=== PATIENT | female | born 1945 | race Caucasian/White ===

== ENCOUNTER 2019-10-17 12:46 | Outpatient (CLI) | payer MEDICARE, OTHER, SELFPAY ==
[2019-10-17 13:02] VITALS: BP 121/79; PULSE 62; RESP 16; TEMP 36.4
[2019-10-17] MEDS: denosumab 60 mg SDV (13:08)
[2019-10-17 13:17] VITALS: BP 132/76; PULSE 67; RESP 16; TEMP 36.6; O2SAT 98
== END 2019-10-17 12:47 | disposition home or self-care (01) ==
LOC: RHEOACUTE 12:47
PROVIDERS: Family Provider Family Medicine; PCP Family Medicine; Visit Provider Internal Medicine Rheumatology
DX: M81.0 Age-related osteoporosis without current pathological fracture (principal)
CPT/HCPCS: 96372; J0897

== ENCOUNTER 2020-05-09 14:22 | Outpatient (RCR) | payer MEDICARE, OTHER, SELFPAY | END 2020-05-18 23:59 | disposition home or self-care (01) | LOC: SPT 14:22 | PROVIDERS: PCP Family Medicine; Referring Provider Family Medicine; Visit Provider Family Medicine | DX: M40.204 Unspecified kyphosis, thoracic region (principal) | CPT/HCPCS: 97110; 97161 ==

== ENCOUNTER 2020-05-19 06:00 | Outpatient (RCR) | payer MEDICARE, OTHER, SELFPAY | END 2020-06-17 23:59 | disposition home or self-care (01) | LOC: SPT 06:00 | PROVIDERS: PCP Family Medicine; Referring Provider Family Medicine; Visit Provider Family Medicine | DX: M40.204 Unspecified kyphosis, thoracic region (principal) | CPT/HCPCS: 97110 ==

== ENCOUNTER 2020-06-19 15:14 | Outpatient (CLI) | payer MEDICARE, OTHER, SELFPAY ==
--- NOTE | 2020-06-19 15:22 | MM_ITS ---
WS: [id number] BILATERAL DIGITAL SCREENING MAMMOGRAPHY WITH CAD CLINICAL INFORMATION: SCREENING HISTORY: Screening mammogram. No current complaints. COMPARISON: TECHNIQUE: Bilateral CC and MLO views. FINDINGS: Right breast implant. Right breast implant is intact. Scattered fibroglandular densities bilaterally. No suspicious focal mass, asymmetry, calcifications, or architectural distortion. No evidence of malignancy. A few stable punctate calcifications. Stable 6 mm ovoid nodule inner left breast. MM/[place] [id number] IMPRESSION: BI-RADS: 2-Benign FOLLOW UP: 1 Year Follow-up Recommend return to annual screening mammography.
== END 2020-06-19 15:15 | disposition home or self-care (01) ==
LOC: RADSHAW 15:20
PROVIDERS: PCP Family Medicine; Visit Provider Nurse Practitioner
DX: Z12.31 Encounter for screening mammogram for malignant neoplasm of breast (principal)
CPT/HCPCS: 77067

== ENCOUNTER 2020-11-05 10:36 | Outpatient (CLI) | payer MEDICARE, OTHER, SELFPAY ==
--- NOTE | 2020-11-05 11:00 | CT_ITS ---
WS: [id number] CT PARANASAL SINUSES HISTORY: SINUSITIS TECHNIQUE: Contiguous 2.5 mm axial images obtained through the sinuses. Images are reconstructed in s agittal and coronal planes. All CT scans at [facility] use at least one of these dose opt imization techniques: automated exposure control; mA and/or kV adjustment per patient size (includes targeted exams where dose is matched to clinical indication); or iterative reconstruction. DLP: 338.71 mGycm COMPARISON: None available. Frontal sinuses: Normal. Sphenoid sinus: Normal. Ethmoid sinuses: Mild bilateral mucoperiosteal thickening in the anterior ethmoid air cells, RIGHT gr eater than LEFT. Maxillary sinus: Mild bilateral mucoperiosteal thickening throughout both sinuses but RIGHT greater t schuster LEFT. No air-fluid levels. Incomplete soft tissue and bony septa along the superior wall of the m axillary sinuses. Ostiomeatal unit: Obstruction of the ostiomeatal units bilaterally. In part this is due to the bony a nd soft tissue septums involving the superior maxillary sinuses. Most significant obstruction on the RIGHT. RIGHT curvature of the nasal septum with a soft tissue nodule extending to the RIGHT. CT/CT sinus wo con* [id number] IMPRESSION: 1. Mild mucoperiosteal thickening in the anterior ethmoid air cells and maxill carlie sinuses. 2. Soft tissue obstruction of the ostiomeatal units is in part due to soft tis barbara and bony septa along the superior maxillary sinuses. No air-fluid levels.
== END 2020-11-05 10:37 | disposition home or self-care (01) ==
PROVIDERS: PCP Family Medicine; Visit Provider Otolaryngology
DX: J32.9 Chronic sinusitis, unspecified (principal)
CPT/HCPCS: 70486

== ENCOUNTER → 2021-04-10 14:28 | Outpatient (BNVA) | payer MEDICARE, OTHER, SELFPAY | PROVIDERS: PCP Family Medicine; Visit Provider Obstetrics & Gynecology | DX: Z01.419 Encounter for gynecological examination (general) (routine) without abnormal findings (principal); R10.9 Unspecified abdominal pain | CPT/HCPCS: 81000; 87086 ==

== ENCOUNTER → 2021-05-07 08:22 | Outpatient (BNVA) | payer MEDICARE, OTHER, SELFPAY | PROVIDERS: PCP Family Medicine; Visit Provider Obstetrics & Gynecology | DX: M81.0 Age-related osteoporosis without current pathological fracture (principal); Z79.899 Other long term (current) drug therapy | CPT/HCPCS: 82040; 82310; 82565; 82652 ==

== ENCOUNTER 2021-05-19 13:41 | Outpatient (CLI) | payer MEDICARE, OTHER, SELFPAY ==
[2021-05-19 14:18] VITALS: BP 147/86; PULSE 80; RESP 18; TEMP 37.2; O2SAT 97
[2021-05-19] MEDS: denosumab 60 mg SDV SUBCUT (14:27)
[2021-05-19 14:41] VITALS: BP 146/90; PULSE 63; RESP 18; TEMP 37.1; O2SAT 97
== END 2021-05-19 13:42 | disposition home or self-care (01) ==
PROVIDERS: PCP Family Medicine; Referring Provider Family Medicine; Visit Provider Family Medicine
DX: M81.0 Age-related osteoporosis without current pathological fracture (principal)
CPT/HCPCS: 96372; J0897

== ENCOUNTER → 2021-06-12 11:10 | Outpatient (BNVA) | payer MEDICARE, OTHER, SELFPAY | PROVIDERS: PCP Family Medicine; Visit Provider Registered Nurse Neonatal Intensive Care | DX: Z20.822 Contact with and (suspected) exposure to COVID-19 (principal); Z11.52 Encounter for screening for COVID-19; J06.9 Acute upper respiratory infection, unspecified; R05.9 Cough, unspecified | CPT/HCPCS: 87635 ==

== ENCOUNTER 2021-11-17 13:41 | Outpatient (CLI) | payer MEDICARE, OTHER, SELFPAY ==
[2021-11-17 14:11] VITALS: BP 133/87; PULSE 71; RESP 18; TEMP 36.2; O2SAT 95
[2021-11-17] MEDS: denosumab 60 mg SDV SUBCUT (14:26)
[2021-11-17 14:35] VITALS: BP 144/86; PULSE 70; RESP 18; TEMP 36.6; O2SAT 96
== END 2021-11-17 13:42 | disposition home or self-care (01) ==
LOC: ONCMED 13:51
PROVIDERS: PCP Family Medicine; Referring Provider Family Medicine; Visit Provider Family Medicine
DX: M81.0 Age-related osteoporosis without current pathological fracture (principal)
CPT/HCPCS: 96372; J0897

== ENCOUNTER 2022-01-08 11:11 | Outpatient (CLI) | payer MEDICARE, OTHER, SELFPAY ==
--- NOTE | 2022-01-08 11:17 | MM_ITS ---
WS: [email or web address] VIEWS: MLO and CC views both breasts. 3D digital tomosynthesis is also included in this exam. Right breast implant displacement MLO and CC views also included in the series. Comparison made with prior exam of 12/31/2015, 01/01/2017, 03/04/2018, 02/07/2019, 06/19/2020.. Findings: There was no sign of mass, architectural distortion or suspicious calcification in either breast. Sta ble appearing nodular density in the medial left breast. Breast implant in the right breast which is partially deflated.Scattered fibroglandular densities MM/[place] [id number] Impression: BI-RADS: 2-Benign FOLLOW-UP: 1 Year Follow-up This mammogram was also analyzed by the Computer Aided Detection System R2 Imag e [employer].
== END 2022-01-08 11:12 | disposition home or self-care (01) ==
PROVIDERS: PCP Family Medicine; Visit Provider Family Medicine
DX: Z12.31 Encounter for screening mammogram for malignant neoplasm of breast (principal)
CPT/HCPCS: 77063; 77067

== ENCOUNTER → 2022-02-25 15:06 | Outpatient (BNVA) | payer MEDICARE, OTHER, SELFPAY | PROVIDERS: PCP Family Medicine; Visit Provider Nurse Practitioner Family | DX: R33.9 Retention of urine, unspecified (principal); N39.0 Urinary tract infection, site not specified; R35.1 Nocturia | CPT/HCPCS: 81003; 99213 ==

== ENCOUNTER → 2022-03-11 10:56 | Outpatient (BNVA) | payer MEDICARE, OTHER, SELFPAY | PROVIDERS: PCP Family Medicine; Visit Provider Nurse Practitioner Family | DX: R33.9 Retention of urine, unspecified (principal); R35.1 Nocturia; N39.0 Urinary tract infection, site not specified | CPT/HCPCS: 81003; 99213 ==

== ENCOUNTER → 2022-05-15 09:38 | Outpatient (BNVA) | payer MEDICARE, OTHER, SELFPAY | PROVIDERS: PCP Family Medicine; Visit Provider Family Medicine | DX: H81.10 Benign paroxysmal vertigo, unspecified ear (principal) | CPT/HCPCS: 80053 ==

== ENCOUNTER → 2022-05-18 13:29 | Outpatient (BNVA) | payer MEDICARE, OTHER, SELFPAY | PROVIDERS: PCP Family Medicine; Visit Provider Otolaryngology | DX: H81.10 Benign paroxysmal vertigo, unspecified ear (principal) | CPT/HCPCS: 99213 ==

== ENCOUNTER 2022-05-25 12:55 | Outpatient (CLI) | payer MEDICARE, OTHER, SELFPAY ==
[2022-05-25 13:22] VITALS: BP 149/80; PULSE 70; RESP 18; TEMP 36.7; O2SAT 97
[2022-05-25] MEDS: denosumab 60 mg SDV SUBCUT (13:31)
[2022-05-25 13:39] VITALS: BP 142/88; PULSE 70; RESP 18; TEMP 36.6; O2SAT 97
== END 2022-05-25 12:56 | disposition home or self-care (01) ==
LOC: ONCMED 12:56
PROVIDERS: PCP Family Medicine; Visit Provider Family Medicine
DX: M81.0 Age-related osteoporosis without current pathological fracture (principal)
CPT/HCPCS: 96372; J0897

== ENCOUNTER → 2023-04-15 15:48 | Outpatient (BNVA) | payer MEDICARE, OTHER, SELFPAY | PROVIDERS: PCP Family Medicine; Visit Provider Family Medicine | DX: Z78.0 Asymptomatic menopausal state; Z13.6 Encounter for screening for cardiovascular disorders; Z11.59 Encounter for screening for other viral diseases | CPT/HCPCS: 81000 ==

== ENCOUNTER → 2023-04-16 09:22 | Outpatient (BNVA) | payer MEDICARE, OTHER, SELFPAY | PROVIDERS: PCP Family Medicine; Visit Provider Family Medicine | DX: Z13.6 Encounter for screening for cardiovascular disorders (principal); Z11.59 Encounter for screening for other viral diseases; Z79.899 Other long term (current) drug therapy | CPT/HCPCS: 80053; 80061; 85025; 86803 ==

== ENCOUNTER 2023-05-17 13:04 | Outpatient (CLI) | payer MEDICARE, OTHER, SELFPAY ==
--- NOTE | 2023-05-17 13:13 | MM_ITS ---
WS: [email or web address] BILATERAL 3D TOMOSYNTHESIS DIGITAL SCREENING MAMMOGRAPHY WITH CAD CLINICAL INFORMATION: screening HISTORY: Screening mammogram. RIGHT breast pain and tenderness) COMPARISON: 2020 TECHNIQUE: Bilateral CC and MLO views. FINDINGS: Stable RIGHT breast implant. LEFT breast is unchanged in appearance. Stable ovoid nodule in ner LEFT breast. Scattered fibroglandular densities bilaterally. No suspicious focal mass, asymmetry, calcifications, or architectural distortion. No evidence of malignancy. A few incidental punctate calcifications. Vas cular calcifications. IMPRESSION: MM/[place] [id number] BI-RADS: 2-Benign FOLLOW UP: 1 Year Follow-up Recommend return to annual screening mammography.
--- NOTE | 2023-05-17 14:00 | XR_ITS ---
WS: [email or web address] SCREENING DEXA SCAN [employer] CLINICAL INFORMATION: post-menopausal COMPARISON: 2018 FINDINGS: The L1-L4 bone mineral density measures 1.027 g/cm2. This corresponds to a T score score of -1.3 and Z score of 0.7. Left femoral neck bone mineral density measures 0.724 g/cm2. This corresponds to a T score of -2.2 an d Z score of -0.3. Right femoral neck bone mineral density measures 0.720 g/cm2. This corresponds to a T score -2.3of an d Z score of -0.4. Mean femoral neck bone mineral density measures 0.722 g/cm2. This corresponds to a T score of -2.3 an d Z score of -0.4. IMPRESSION: Osteopenia lumbar spine. Osteopenia femoral necks. Patient's FRAX calculated 10 year probability for major osteoporotic fracture is 26.2% and osteoporot ic hip fracture is 16.7%. Bone mineral density in the lumbar spine increased 4.7% Bone mineral density femoral necks increased 2.4%
== END 2023-05-17 13:05 | disposition home or self-care (01) ==
LOC: RAD 13:05
PROVIDERS: PCP Family Medicine; Visit Provider Family Medicine
DX: Z12.31 Encounter for screening mammogram for malignant neoplasm of breast (principal); Z13.820 Encounter for screening for osteoporosis; Z78.0 Asymptomatic menopausal state
CPT/HCPCS: 77063; 77067; 77080

== ENCOUNTER 2023-07-08 14:03 | Outpatient (CLI) | payer MEDICARE, OTHER, SELFPAY ==
--- NOTE | 2023-07-08 14:06 | XRR_ITS ---
PROCEDURE INFORMATION: Exam: XR Cervical Spine Exam date and time: 07/08/2023 2:21 PM Age: 78 years old Clinical indication: Radicular pain (radiculopathy); Cervical region; Additional info: Cervical radiculopathy TECHNIQUE: Imaging protocol: Radiologic exam of the cervical spine. Views: 2 or 3 views. COMPARISON: CR XR cervical spine 4-5V [id number] 07/15/2021 11:48 AM FINDINGS: Bones/joints: Stable minimal reverse listhesis of C 2 on C3. Very minimal anterolisthesis of C6 on C7. Vertebral body and intervertebral disc heights are intact. Diffuse facet arthropathy again seen bilaterally. No fracture or dislocation. Soft tissues: No soft tissue pathology. XR/XR cervical spine 3V* [id number] IMPRESSION: No acute pathology or significant interval change. Minimal listhesis and features facet arthropathy again noted.
== END 2023-07-08 14:04 | disposition home or self-care (01) ==
LOC: RAD 14:03
PROVIDERS: PCP Family Medicine; Visit Provider Family Medicine
DX: M54.12 Radiculopathy, cervical region (principal)
CPT/HCPCS: 72040

== ENCOUNTER → 2023-09-27 14:21 | Outpatient (BNVA) | payer MEDICARE, OTHER, SELFPAY | PROVIDERS: PCP Family Medicine; Visit Provider Family Medicine | DX: R51.9 Headache, unspecified; E55.9 Vitamin D deficiency, unspecified; R10.11 Right upper quadrant pain | CPT/HCPCS: 80053; 82306; 85025; 85651; 86140 ==

== ENCOUNTER 2023-09-29 06:22 | Outpatient (CLI) | payer MEDICARE, OTHER, SELFPAY ==
--- NOTE | 2023-09-29 06:30 | US_ITS ---
WS: [email or web address] RIGHT UPPER QUADRANT ULTRASOUND HISTORY: ruq pain COMPARISON: 01/12/2019 Liver: 13.1 cm in length. Normal size liver. There is a simple cyst in the RIGHT lobe measuring 2.0 x 1.7 x 1.8 cm. This cyst has been previously described. No solid mass. Portal Vein: Normal hepatopetal flow with monophasic waveform. Gallbladder: Normally distended gallbladder with no stones or wall thickening. CBD: 0.4 cm Pancreas: Normal size and echogenicity. Right kidney: 8.9 cm in length. Normal size and echogenicity. No hydronephrosis or mass. Aorta and IVC: Unremarkable abdominal aorta and IVC. No ascites. IMPRESSION: 1. Normal gallbladder. 2. Stable hepatic cyst. No solid mass or bile duct dilatation.
== END 2023-09-29 06:23 | disposition home or self-care (01) ==
LOC: RAD 06:22
PROVIDERS: PCP Family Medicine; Visit Provider Family Medicine
DX: R10.11 Right upper quadrant pain (principal)
CPT/HCPCS: 76705; 80053; 82306; 85025; 85651; 86140

== ENCOUNTER 2023-10-26 09:54 | Outpatient (CLI) | payer MEDICARE, OTHER, SELFPAY ==
--- NOTE | 2023-10-26 10:15 | MR_ITS ---
WS: [email or web address] MRI HEAD WITH CONTRAST TECHNIQUE: Sagittal T1, T2 axial, T2 axial FLAIR, axial susceptibility weighted imaging, axial diffus ion weighted images, and coronal T2 images were obtained. Pre and post-T1 axial and post T1 coronal i mages. ADC and FSPGR images. CLINICAL INFORMATION: right sided temporal pain / headache COMPARISON: None. FINDINGS: No evidence of restricted diffusion to suggest acute ischemia. Mild small vessel changes. Moderate pa renchymal volume loss. Incidental cavum septa pellucida and vergae. Normal posterior fossa. Normal va scular flow voids at the skull base. No extra-axial fluid collections. No evidence of mass or mass ef fect. Mild mucosal thickening in the ethmoid air cells. Mild mucosal thickening paranasal sinuses. No rmal posterior nasopharynx. Mastoid air cells are well aerated. Partially visualized lobulated T2 hyperintense RIGHT parotid lesion measuring 2.1 x 1.3 cm may repres ent parotid adenoma but indeterminate. This can be followed up with contrast-enhanced neck CT and ENT consultation. No hemosiderin on the susceptibility weighted images. Normal optic chiasm and pituitary infundibulum. Moderate symmetric atrophy temporal lobes and hippocampal formations. Enhancing extra-axial lesion RIGHT parietal lobe posteriorly adjacent to the sagittal sinus likely ca lcified meningioma measuring 10 x 7 mm. No significant underlying signal abnormality. Minimal mass ef fect on the underlying parenchyma. No other abnormal foci of enhancement. IMPRESSION: 1. No evidence of restricted diffusion to suggest acute ischemia. 2. Mild small vessel changes with moderate parenchymal volume loss. 3. Enhancing extra-axial lesion overlying the RIGHT parietal lobe adjacent to the sagittal sinus lik marc meningioma. This measures 10 x 7 mm. No underlying signal abnormality. Recommend 12-month follow- up MRI of the head without and with gadolinium enhancement. 4. Lobulated peripheral enhancing T2 hyperintense lesion involving the RIGHT parotid gland measuring 2.1 x 1.3 cm. This may present a parotid adenoma but technically indeterminate. This could be furthe r evaluated with contrast-enhanced CT neck and ENT consultation.
--- NOTE | 2023-10-26 11:00 | MR_ITS ---
WS: [email or web address] MRI CERVICAL SPINE NONCONTRAST TECHNIQUE: Sagittal T1, T2 and STIR imaging. Axial T2, gradient, and fiesta imaging. CLINICAL INFORMATION: cervical radiculopathy COMPARISON: None. FINDINGS: Some images degraded by motion artifact Exaggeration of the normal cervical lordosis. Cord signal is normal. No high-grade central canal narr owing. C2-C3: Normal. C3-C4: Disc osteophyte complex. Moderate facet arthropathy. Moderate LEFT foraminal narrowing. C4-C5: Mild disc osteophyte complex. Moderate facet arthropathy. Moderate LEFT greater than RIGHT for aminal narrowing. C5-C6: Moderate facet arthropathy worse in the LEFT. Mild osteophytic ridging. Mild bilateral foramin al narrowing. C6-C7: No significant disc bulging. Mild osteophytic ridging. Spinal canal and foramen are patent. C7-T1: Spinal canal and foramen are patent. Visualized brain stem structures: Normal. Prevertebral soft tissues: Normal. Partially evaluated LEFT thyroid nodule measuring 3.9 x 3.0 cm. This could follow-up with ultrasound. IMPRESSION: 1. Exaggeration of the normal cervical lordosis. Cord signal is normal. 2. Multilevel moderate bony foraminal narrowing worse at LEFT C3-C4, bilateral C4-5 worse on the LEF T, 3. Moderate facet arthropathy C3-C4 C4-C5 and LEFT C5-C6. 4. Large LEFT thyroid nodule partially evaluated. This could be further evaluated with ultrasound.
[2023-10-26] MEDS: gadobenate dimeglumine 20 mL vial IV (11:24)
== END 2023-10-26 09:55 | disposition home or self-care (01) ==
PROVIDERS: PCP Family Medicine; Visit Provider Family Medicine
DX: M54.12 Radiculopathy, cervical region (principal); R51.9 Headache, unspecified; M48.02 Spinal stenosis, cervical region; M47.812 Spondylosis without myelopathy or radiculopathy, cervical region; G31.89 Other specified degenerative diseases of nervous system
CPT/HCPCS: 70553; 72141; A9577

== ENCOUNTER 2023-10-27 08:29 | Outpatient (CLI) | payer MEDICARE, OTHER, SELFPAY ==
--- NOTE | 2023-10-27 10:00 | NM_ITS ---
WS: [email or web address] NUCLEAR MEDICINE HIDA SCAN WITH GALLBLADDER EJECTION FRACTION HISTORY: RUQ Pain COMPARISON: 09/29/2023 TECHNIQUE: The patient was intravenously injected with 7.7 mCi of TC99m Mebrofenin. Immediate imaging over the right upper quadrant was followed by 5 minute image and additional images for a total of 60 minutes. Normal uptake of radiotracer throughout the liver. Activity identified in the gallbladder at 15 minutes and well distended by 60 minutes. Activity in the proximal small bowel was seen by 30 minutes. Good washout of the radiotracer from the liver by 60 minutes. The patient then drank 8 ounces of Ensure Plus. Ejection fraction at 60 minutes was 80%. Normal GB ej ection fraction is 35-75%. Post fatty meal symptoms: None. IMPRESSION: 1. Normal HIDA scan. 2. Normal gallbladder ejection fraction.
== END 2023-10-27 08:30 | disposition home or self-care (01) ==
LOC: RAD 08:31
PROVIDERS: PCP Family Medicine; Visit Provider Family Medicine
DX: R10.11 Right upper quadrant pain (principal)
CPT/HCPCS: 78227; A9537

== ENCOUNTER → 2023-10-29 11:03 | Outpatient (BNVA) | payer MEDICARE, OTHER, SELFPAY | PROVIDERS: PCP Family Medicine; Visit Provider Family Medicine | DX: E78.5 Hyperlipidemia, unspecified (principal); E83.52 Hypercalcemia | CPT/HCPCS: 80053; 80061 ==

== ENCOUNTER 2023-11-01 07:49 | Outpatient (CLI) | payer MEDICARE, OTHER, SELFPAY ==
--- NOTE | 2023-11-01 08:15 | US_ITS ---
WS: [email or web address] THYROID ULTRASOUND HISTORY: Thyroid nodule COMPARISON: None available. Right lobe: 1.3 cm x 2.7 cm x 4.7 cm (w x ap x l). Volume: 8.0 cm3. Mildly enlarged but very heterogeneous and nodular gland. There are a few scattered cystic areas. The re is no discrete mass identified. No increased vascularity. Left lobe: 2.8 cm x 2.8 cm x 4.6 cm (w x ap x l). Volume: 17.1 cm3. Markedly enlarged heterogeneous nodular gland. There is a large isoechoic nodule essentially filling nearly the entire gland. Nodule measures 2.5 x 2.3 x 3.7 cm. There are a few cystic areas scattered t hroughout. No increased vascularity. No echogenic focus. Isthmus: 0.2 cm. IMPRESSION: 1. TI-RADS 3; LEFT thyroid nodule. Due to the size of this nodule recommend fine-needle aspiration at this time by ultrasound. 2. Mildly heterogeneous nodular RIGHT thyroid with no mass.
== END 2023-11-01 07:50 | disposition home or self-care (01) ==
LOC: RAD 07:49
PROVIDERS: PCP Family Medicine; Visit Provider Family Medicine
DX: E04.1 Nontoxic single thyroid nodule (principal)
CPT/HCPCS: 76536

== ENCOUNTER 2023-11-16 16:33 | Outpatient (CLI) | payer MEDICARE, OTHER, SELFPAY ==
--- NOTE | 2023-11-16 16:45 | CT_ITS ---
WS: [email or web address] CT NECK TECHNIQUE: Contrast-enhanced CT of the neck with coronal and sagittal reformatted images. CLINICAL INFORMATION: Parotid Lesion COMPARISON: None. DLP: 130.[address] scans at [facility] use at least one of these dose optimization techniques: automated e xposure control; mA and/or kV adjustment per patient size (includes targeted exams where dose is matc hed to clinical indication); or iterative reconstruction. FINDINGS: Paranasal sinuses are well aerated. Mild mucosal thickening in the ethmoid air cells and maxillary si nuses. Normal posterior nasopharynx. Mastoid air cells are well aerated. Dental artifact degrades aubrie e images at the tongue base. Normal parapharyngeal fat. Again seen is the peripherally enhancing lesi on involving the RIGHT parotid tail measuring 1.6 x 1.0 cm partially visualized on the prior head MRI nonspecific but suspicious for parotid adenoma. Recommend ENT consultation. This appears well-circum scribed on today's study and on the prior MRI. LEFT parotid gland is normal. Normal submandibular glands. LEFT thyroid nodule as seen on the recent ultrasound measuring 2.5 x 3.5 cm. Slightly nodular heterogeneous enhancement in the RIGHT thyroid. N o cervical lymphadenopathy. Fibrosis in the lung apices. Partially visualized soft tissue lesion in the RIGHT tracheoesophageal groove measuring 2.1 x 1.7 cm partially visualized. Neoplasm is not excluded. Recommend further evaluation with chest CT. No prior chest CTs for comparison. CT/CT neck w con* [id number] IMPRESSION: 1. Well-circumscribed peripherally enhancing RIGHT parotid nodule nonspecific but suspicious for parotid adenoma. Recommend ENT consultation. 2. Salivary glands are otherwise normal. 3. Dominant LEFT thyroid nodule as seen on the recent ultrasound. 4. No cervical lymphadenopathy. 5. Soft tissue nodule partially visualized in the RIGHT tracheoesophageal groo ve measuring 2.1 x 1.7 cm. Recommend further evaluation with contrast-enhanced chest CT. No prior CT chest comparisons.
[2023-11-16] MEDS: iohexol 350 mg/mL 500 mL Btl (per mL) IV (17:13)
== END 2023-11-16 16:34 | disposition home or self-care (01) ==
PROVIDERS: PCP Family Medicine; Visit Provider Family Medicine
DX: K11.9 Disease of salivary gland, unspecified (principal)
CPT/HCPCS: 70491; Q9967

== ENCOUNTER 2023-11-17 14:13 | Outpatient (CLI) | payer MEDICARE, OTHER, SELFPAY ==
[2023-11-17 15:36] LABS: Parathyroid Hormone 102.6 pg/mL (15-65)
== END 2023-11-17 14:14 | disposition home or self-care (01) ==
LOC: LAB 14:15
PROVIDERS: PCP Family Medicine; Visit Provider Family Medicine
DX: E83.52 Hypercalcemia (principal)
CPT/HCPCS: 36415; 82310; 83970

== ENCOUNTER 2023-11-23 10:13 | Outpatient (CLI) | payer MEDICARE, OTHER, SELFPAY ==
[2023-11-23 11:40] LABS: Total Volume Urine 1500 ml
[2023-11-23 11:56] LABS: Calcium 24 Hour Urine 177 mg/24hr (100-300); Urine Calcium Result 11.8 mg/dL
== END 2023-11-23 10:14 | disposition home or self-care (01) ==
LOC: LAB 10:15
PROVIDERS: PCP Family Medicine; Visit Provider Family Medicine
DX: N25.81 Secondary hyperparathyroidism of renal origin (principal)
CPT/HCPCS: 82340

== ENCOUNTER 2023-11-29 08:55 | Outpatient (CLI) | payer MEDICARE, OTHER, SELFPAY ==
--- NOTE | 2023-11-29 09:15 | CT_ITS ---
WS: [email or web address] CT CHEST TECHNIQUE: Contrast enhanced CT of the chest with coronal and sagittal reformatted images. CLINICAL INFORMATION: Tracheoesophageal Lesion COMPARISON: CT neck 11/16/2023 DLP: 259.[address] scans at [facility] use at least one of these dose optimization techniques: automated e xposure control; mA and/or kV adjustment per patient size (includes targeted exams where dose is matc hed to clinical indication); or iterative reconstruction. FINDINGS: Dominant LEFT thyroid nodule as seen on the recent ultrasound. Mild mass effect on the trachea at the thoracic inlet. No significant narrowing. No suspicious mass in the tracheoesophageal groove. Previously described partially visualized lesion corresponds to the normal azygos vein today. Moderate thoracic kyphosis. No acute compression fractur es. RIGHT breast prosthesis. Chronic emphysematous changes. No acute pulmonary infiltrates. Adrenal glands are normal. Small partially visualized hepatic cysts. Diffuse heterogeneous hepatic en hancement. This is partially visualized and recommend further evaluation with contrast-enhanced CT ab domen pelvis. Recommend correlation with liver function tests. CT/CT chest w con* [id number] IMPRESSION: 1. No suspicious findings in the tracheoesophageal groove today. Normal azygos vein. 2. Stable previously described dominant LEFT thyroid nodule. 3. Lungs are well aerated. Chronic emphysematous changes. 4. Diffuse coarse heterogeneous hepatic parenchymal enhancement. This is parti ally visualized. Recommend further evaluation with contrast-enhanced CT abdomen pelvis and/or liver ultrasound. Recommend correlation with liver function test s. 5. A few partially visualized hepatic cysts.
[2023-11-29] MEDS: iohexol 350 mg/mL 500 mL Btl (per mL) IV (09:43)
== END 2023-11-29 08:56 | disposition home or self-care (01) ==
LOC: RAD 08:55
PROVIDERS: PCP Family Medicine; Visit Provider Family Medicine
DX: R22.2 Localized swelling, mass and lump, trunk (principal); E04.1 Nontoxic single thyroid nodule; K76.89 Other specified diseases of liver
CPT/HCPCS: 71260; Q9967

== ENCOUNTER → 2023-11-30 14:20 | Outpatient (BNVA) | payer MEDICARE, OTHER, SELFPAY | PROVIDERS: PCP Family Medicine; Visit Provider Otolaryngology | DX: E04.1 Nontoxic single thyroid nodule (principal); K11.8 Other diseases of salivary glands | CPT/HCPCS: 99215 ==

== ENCOUNTER 2023-12-08 10:10 | Outpatient (CLI) | payer MEDICARE, OTHER, SELFPAY ==
--- NOTE | 2023-12-08 10:35 | US_ITS ---
WS: [email or web address] ULTRASOUND GUIDED RIGHT PAROTID FNA CLINICAL INFORMATION: FNA OF RIGHT PAROTID MASS TECHNIQUE: Ultrasound-guided FNA FINDINGS: The procedure including risks, benefits, and complications were discussed with the patient who agreed to proceed. Timeout was performed. Using sterile technique patient was prepped and draped in usual sterile fashion. After 1% lidocaine, using ultrasound guidance, a 25-gauge needle was advanc ed into the RIGHT parotid nodule. 3 passes were made with active aspiration. Cystic lesion collapsed after the initial passes. Aspirated fluid sent for cytology. Pathology was present for slide preparation. No immediate complications. Patient remained in the ultrasound 15 minutes postprocedure with intermittent ultrasound to ensure no hematoma. No hematoma 15 minutes postprocedure. US/US guide FNA [id number] IMPRESSION: 1. Uncomplicated ultrasound-guided RIGHT parotid FNA 2. Cystic parotid lesion collapsed after the initial 2 passes. No significant residual lesion. Recommend follow-up with contrast-enhanced neck CT 3. Cytology is pending.
--- NOTE | 2023-12-08 11:45 | US_ITS ---
WS: [email or web address] ULTRASOUND THYROID FNA CLINICAL INFORMATION: left thyroid mass TECHNIQUE: Ultrasound-guided FNA FINDINGS: The procedure including risks, benefits, and complications were discussed with the patient who agreed to proceed. Timeout was performed. Using sterile technique patient was prepped and draped in usual sterile fashion. After 1% lidocaine, using ultrasound guidance, a 25-gauge needle was advanc ed into the LEFT thyroid nodule. 5 passes were made with active aspiration. Pathology was present for slide preparation. No immediate complications. Patient remained in the ultrasound suite 15 minutes postprocedure with intermittent ultrasound to ens ure no hematoma. No hematoma 15 minutes postprocedure. US/US biopsy/FNA thyroid [id number] IMPRESSION: Uncomplicated ultrasound-guided thyroid FNA of the LEFT thyroid nodule. Cytology is pending.
== END 2023-12-08 10:11 | disposition home or self-care (01) ==
LOC: RAD 10:10
PROVIDERS: PCP Family Medicine; Visit Provider Otolaryngology
DX: K11.8 Other diseases of salivary glands (principal); E04.1 Nontoxic single thyroid nodule
CPT/HCPCS: 10005; 88173

== ENCOUNTER → 2023-12-16 10:40 | Outpatient (BNVA) | payer MEDICARE, OTHER, SELFPAY | PROVIDERS: PCP Family Medicine; Visit Provider Otolaryngology | DX: K11.8 Other diseases of salivary glands (principal); E04.1 Nontoxic single thyroid nodule | CPT/HCPCS: 99213 ==

== ENCOUNTER → 2024-03-23 12:32 | Outpatient (BNVA) | payer MEDICARE, OTHER, SELFPAY | PROVIDERS: PCP Family Medicine; Visit Provider Internal Medicine | DX: E55.9 Vitamin D deficiency, unspecified (principal); M81.0 Age-related osteoporosis without current pathological fracture; E04.1 Nontoxic single thyroid nodule; N25.81 Secondary hyperparathyroidism of renal origin; E78.5 Hyperlipidemia, unspecified | CPT/HCPCS: 36415; 80053; 82306; 82310; 83970; 84439; 84443 ==

== ENCOUNTER → 2024-05-18 14:26 | Outpatient (BNVA) | payer MEDICARE, OTHER, SELFPAY | PROVIDERS: PCP Family Medicine; Visit Provider Nurse Practitioner Family | DX: D18.01 Hemangioma of skin and subcutaneous tissue (principal); L82.1 Other seborrheic keratosis; L82.0 Inflamed seborrheic keratosis; L57.0 Actinic keratosis; L57.8 Other skin changes due to chronic exposure to nonionizing radiation | CPT/HCPCS: 17000; 17110; 99213 ==

== ENCOUNTER 2024-06-28 11:06 | Outpatient (CLI) | payer MEDICARE, OTHER, SELFPAY ==
--- NOTE | 2024-06-28 11:09 | MM_ITS ---
WS: [email or web address] BILATERAL SCREENING DIGITAL BREAST MAMMOGRAPHY WITH MARRY DISPLACEMENT VIEWS. CAD PERFORMED. HISTORY: SCREEN COMPARISON: 05/17/2023, 01/08/2022 Bilateral craniocaudal and mediolateral oblique views are performed with tomosynthesis and SM. Marry displacement views in CC and MLO projection also performed. Breasts composition: There are scattered areas of fibroglandular density. RIGHT breast implant is unchanged. There are no suspicious masses or nodules within either breast. Th ere are a few benign calcifications. No architectural distortion. MM/MM scr BI tomosynthesis [id number] IMPRESSION: BI-RADS: 2 - Benign. FOLLOW-UP: 1 Year Follow-up
== END 2024-06-28 11:07 | disposition home or self-care (01) ==
LOC: RAD 11:07
PROVIDERS: PCP Family Medicine; Visit Provider Family Medicine
DX: Z12.31 Encounter for screening mammogram for malignant neoplasm of breast (principal); R92.323 Mammographic fibroglandular density, bilateral breasts; Z98.82 Breast implant status
CPT/HCPCS: 77063; 77067

== ENCOUNTER → 2024-08-26 10:23 | Outpatient (BNVA) | payer MEDICARE, OTHER, SELFPAY | PROVIDERS: PCP Family Medicine | DX: J10.1 Influenza due to other identified influenza virus with other respiratory manifestations (principal) | CPT/HCPCS: 87400 ==

== ENCOUNTER → 2024-10-03 10:51 | Outpatient (BNVA) | payer MEDICARE, OTHER, SELFPAY | PROVIDERS: PCP Family Medicine; Visit Provider Family Medicine | DX: E78.5 Hyperlipidemia, unspecified (principal); E55.9 Vitamin D deficiency, unspecified; R41.3 Other amnesia; E53.8 Deficiency of other specified B group vitamins; N25.81 Secondary hyperparathyroidism of renal origin; M81.0 Age-related osteoporosis without current pathological fracture | CPT/HCPCS: 80053; 80061; 82306; 82310; 82607; 83970; 84443; 85025 ==

== ENCOUNTER → 2024-11-07 13:27 | Outpatient (BNVA) | payer MEDICARE, OTHER, SELFPAY | PROVIDERS: PCP Family Medicine; Visit Provider Orthopaedic Surgery | DX: S62.101A Fracture of unspecified carpal bone, right wrist, initial encounter for closed fracture (principal); X58.XXXA Exposure to other specified factors, initial encounter | CPT/HCPCS: 73110; 99203 ==

== ENCOUNTER 2024-11-07 14:01 | Outpatient (CLI) | payer MEDICARE, OTHER, SELFPAY | END 2024-11-07 14:02 | disposition home or self-care (01) | LOC: SPT 14:04 | PROVIDERS: PCP Family Medicine; Visit Provider Orthopaedic Surgery | DX: Z46.89 Encounter for fitting and adjustment of other specified devices (principal); M25.531 Pain in right wrist | CPT/HCPCS: L3908 ==

== ENCOUNTER → 2024-12-19 13:32 | Outpatient (BNVA) | payer MEDICARE, OTHER, SELFPAY | PROVIDERS: PCP Family Medicine; Visit Provider Orthopaedic Surgery | DX: S52.532D Colles' fracture of left radius, subsequent encounter for closed fracture with routine healing (principal); X58.XXXD Exposure to other specified factors, subsequent encounter | CPT/HCPCS: 73100; 73110; 99213 ==

== ENCOUNTER → 2025-01-03 13:36 | Outpatient (BNVA) | payer MEDICARE, OTHER, SELFPAY | PROVIDERS: PCP Family Medicine; Visit Provider Nurse Practitioner Family | DX: L23.9 Allergic contact dermatitis, unspecified cause (principal); L82.1 Other seborrheic keratosis; L82.0 Inflamed seborrheic keratosis; L57.0 Actinic keratosis | CPT/HCPCS: 17000; 99213 ==

== ENCOUNTER → 2025-02-01 13:08 | Outpatient (BNVA) | payer MEDICARE, OTHER, SELFPAY | PROVIDERS: PCP Family Medicine; Referring Provider Family Medicine; Visit Provider Student in an Organized Health Care Education/Training Program | DX: K21.9 Gastro-esophageal reflux disease without esophagitis (principal) | CPT/HCPCS: 99204 ==

== ENCOUNTER 2025-02-20 09:44 | Day surgery (SDC) | payer MEDICARE, OTHER, SELFPAY ==
[2025-02-20 10:03] VITALS: BP 158/90; PULSE 68; RESP 18; TEMP 37.2; O2SAT 97; BMI 21.3
--- NOTE | 2025-02-20 10:42 | ANES.PREANE2 ---
Pre-Anesthetic Assessment Height/Weight: Height 1.68 m Weight 59.874 kg Temp Pulse Resp BP Pulse Ox O2 Del Method 98.9 F 68 18 158/90 97 Room Air 02/20/25 10:03 02/20/25 10:03 02/20/25 10:03 02/20/25 10:03 02/20/25 10:03 02/20/25 10:03 Operation Date: 02/20/25 11:15 Proposed Procedures p EGD with Biopsy 31990, K21.9(Not Applicable) - Aron Enriquez MD Familial anesthetic complications: None Was Beta Lesli taken within 24 hours: N/A Was Clonidine taken within 24 hours: N/A Last intake: Intake Last Liquid Date 02/19/25 Last Liquid Time 20:00 Last Solid Date 02/19/25 Last Solid Time 20:00 Social No alcohol and No tobacco Exam alert, oriented x 3, clear to auscultation bilaterally and regular rate & rhythm Airway Mallampati: Class II Dentition: full Metabolic Hyperlipidemia Anesthetic Plan ASA status: 2 Anesthesia: MAC Risk of > 500 ml blood loss (7ml/kg in children): No Medications/Allergies Home Medications ?Medication ?Instructions ?Recorded ?Confirmed ?Last Taken ?Type cetirizine 10 mg tablet (Zyrtec) 10 mg PO DAILY PRN allergy 10/29/23 02/15/25 1 Day Ago Rx symptoms #90 tabs ~02/14/25 fluticasone propionate 50 2 spray intranasal DAILY 6 months 01/26/24 02/20/25 02/19/25 Rx mcg/actuation nasal #16 grams spray,suspension cholecalciferol (vitamin D3) 75 75 mcg PO DAILY #90 tabs 03/27/24 02/20/25 02/19/25 Rx mcg (3,000 unit) tablet Right cockup splint #1 ea 11/07/24 02/01/25 Unknown Rx atorvastatin 20 mg tablet 20 mg PO DAILY #90 tabs 12/01/24 02/20/25 02/20/25 Rx fluoxetine 20 mg capsule 20 mg PO QAM #30 caps 01/29/25 02/20/25 02/19/25 Rx sucralfate 1 gram tablet (Carafate) 1 g PO BID #60 tabs 01/29/25 02/15/25 02/14/25 Rx alendronate 70 mg tablet 70 mg PO DIRECTED 02/15/25 02/15/25 02/10/25 History aspirin 81 mg tablet 81 mg PO DAILY PRN Headache 02/15/25 02/15/25 02/13/25 History Allergies Allergy/AdvReac Type Severity Reaction Status Date / Time No Known Allergies Allergy Verified 02/15/25 14:55 Current Medications Generic Name Dose Route Start Last Admin Trade Name Freq PRN Reason Stop Dose Admin Sodium Chloride 1,000 mls @ 15 mls/hr 02/20/25 09:48 02/20/25 10:12 Sodium Chloride 0.9% IV 02/21/25 09:47 15 mls/hr .Q24H PRN Administration COLONOSCOPY FLUIDS PFSH Anesthesia Medical History 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 Osteoporosis Dyslipidemia Hyperlipemia Chronic GERD Anxiety Surgical History History of colonoscopy History of esophagogastroduodenoscopy (EGD) History of neck surgery H/O hemorrhoidectomy H/O breast biopsy Right breast after a right breast cystectomy - benign History of breast augmentation On right Family History Mother , at age 78 Cancer Lung Father , at age 55 Cancer Lung Social History Smoking and tobacco/nicotine status: never used tobacco/nicotine Alcohol intake: current Alcohol intake frequency: holidays/special occasions only Household members: spouse Marital status: Current occupational status: retired
--- NOTE | 2025-02-20 11:24 | W.PM.OPSUD ---
Surgery/Procedure H&P Update DATE OF PROCEDURE: February 20, 2025 DATE H&P PERFORMED: 02/01/25 H&P UPDATE INFORMATION: I have reviewed H&P completed within last 30 days, I have examined patient prior to procedure and No changes to prior documentation PLANNED PROCEDURE: Operation Date: 02/20/25 11:15 Proposed Procedures p EGD with Biopsy [id number], K21.9(Not Applicable) - Aron Enriquez MD
[2025-02-20 11:49] VITALS: BP 120/72; PULSE 60; RESP 20; TEMP 36.1; O2SAT 95
--- NOTE | 2025-02-20 11:58 | ANE.PACU2 ---
Inpatient post-anesthesia follow up: Airway intact: Yes Vital signs: Temperature 97 F Pulse Rate 60 Respiratory Rate 20 Blood Pressure 120/72 Pulse Oximetry 95 Oxygen Delivery Me thod Room Air Oxygen Flow Rate Fraction of Inspir ed Oxygen Hydration adequate: Yes Nausea and vomiting: No Pain level: 1 Mental status: Baseline
[2025-02-20 12:04] VITALS: BP 134/76; PULSE 62; RESP 18; O2SAT 97
== END 2025-02-20 12:50 | disposition home or self-care (01) ==
PROVIDERS: PCP Family Medicine; Visit Provider Student in an Organized Health Care Education/Training Program
PROC: 0DJ08ZZ Inspection of Upper Intestinal Tract, Via Natural or Artificial Opening Endoscopic (ICD-10-PCS; principal; 2025-02-20 11:15)
DX: K29.71 Gastritis, unspecified, with bleeding (principal); K21.9 Gastro-esophageal reflux disease without esophagitis; R13.10 Dysphagia, unspecified; E78.5 Hyperlipidemia, unspecified; Z79.82 Long term (current) use of aspirin; F41.9 Anxiety disorder, unspecified; C44.91 Basal cell carcinoma of skin, unspecified
CPT/HCPCS: 43239; 88305; J2704; J7030

== ENCOUNTER → 2025-03-05 13:25 | Outpatient (BNVA) | payer MEDICARE, OTHER, SELFPAY | PROVIDERS: PCP Family Medicine; Visit Provider Student in an Organized Health Care Education/Training Program | DX: Z09 Encounter for follow-up examination after completed treatment for conditions other than malignant neoplasm (principal) | CPT/HCPCS: 99213 ==

== ENCOUNTER → 2025-04-19 08:22 | Outpatient (BNVA) | payer MEDICARE, OTHER, SELFPAY | PROVIDERS: PCP Family Medicine; Visit Provider Nurse Practitioner Family | DX: L82.1 Other seborrheic keratosis (principal); L57.8 Other skin changes due to chronic exposure to nonionizing radiation; L81.4 Other melanin hyperpigmentation; L30.9 Dermatitis, unspecified | CPT/HCPCS: 11104; 99213 ==

== ENCOUNTER → 2025-04-30 10:05 | Outpatient (BNVA) | payer MEDICARE, OTHER, SELFPAY | PROVIDERS: PCP Family Medicine; Visit Provider Nurse Practitioner Family | DX: L92.0 Granuloma annulare (principal) | CPT/HCPCS: 99213 ==

== ENCOUNTER 2025-05-28 15:17 | Outpatient (CLI) | payer MEDICARE, OTHER, SELFPAY ==
--- NOTE | 2025-05-28 15:30 | US_ITS ---
WS: [email or web address] THYROID ULTRASOUND HISTORY: left thyroid nodule COMPARISON: 11/01/2023 Right lobe: 1.5 cm x 1.4 cm x 3.9 cm (w x ap x l). Volume: 3.9 cm3. Heterogeneous lobulated thyroid. There is no discrete mass or increased vascularity. Left lobe: 2.5 cm x 2.6 cm x 5.3 cm (w x ap x l). Volume: 16.4 cm3. Markedly enlarged heterogeneous gland. Large dominant mass in the central gland measures 2.2 x 2.1 x 3.9 cm. There is scattered cysts within this large dominant nodule but this is predominantly solid with minimal increased vascularity. Isthmus: 0.2 cm. Small lymph nodes along the LEFT cervical chain. US/US thyroid [id number] IMPRESSION: 1. Dominant LEFT thyroid nodule measures 2.2 x 2.1 x 3.9 cm. This is a large s olid nodule which has been previously biopsied and no increase in size since . 2. RIGHT thyroid is heterogeneous and nodular but no discrete mass.
== END 2025-05-28 15:18 | disposition home or self-care (01) ==
LOC: RAD 15:18
PROVIDERS: PCP Family Medicine; Visit Provider Family Medicine
DX: E04.2 Nontoxic multinodular goiter (principal)
CPT/HCPCS: 76536

== ENCOUNTER 2025-06-29 10:34 | Outpatient (CLI) | payer MEDICARE, OTHER, SELFPAY ==
--- NOTE | 2025-06-29 10:41 | MM_ITS ---
WS: [email or web address] BILATERAL SCREENING DIGITAL BREAST MAMMOGRAPHY WITH RIGHT MARRY DISPLACEMENT VIEWS. CAD PERFORMED. HISTORY: SCREENING COMPARISON: 06/28/2024, 05/17/2023, 01/08/2022 Bilateral craniocaudal and mediolateral oblique views are performed with tomosynthesis and SM. Marry displacement views in CC and MLO projection also performed. Breasts composition: There are scattered areas of fibroglandular density. RIGHT breast implant is identified. There our slightly more folds within the implant as compared to 06/28/2024. May be partial collapse of the implant. Otherwise the implant is intact. There are a few scattered lymph nodes in the LEFT breast. No mass or interval change. No grouping of calcifications. MM/MM scr tomosynthesis [id number] IMPRESSION: BI-RADS: 2 - Benign. FOLLOW-UP: 1 Year Follow-up
== END 2025-06-29 10:35 | disposition home or self-care (01) ==
LOC: RAD 10:35
PROVIDERS: PCP Family Medicine; Visit Provider Family Medicine
DX: Z12.31 Encounter for screening mammogram for malignant neoplasm of breast (principal); R92.323 Mammographic fibroglandular density, bilateral breasts; Z98.82 Breast implant status; R92.8 Other abnormal and inconclusive findings on diagnostic imaging of breast; N64.89 Other specified disorders of breast
CPT/HCPCS: 77063; 77067